=== PATIENT | male | born 1950 | race Native Hawaiian/Other Pacific Islander ===

== ENCOUNTER 2022-05-16 09:30 | Outpatient (CLI) | payer OTHER ==
[2022-05-16 10:11] LABS: PLATELET COUNT 258 K/uL (142-355)
[2022-05-16 10:39] LABS: POTASSIUM 4.1 mmol/L (3.6-5.2)
== END 2022-05-16 19:53 | disposition home or self-care (01) ==
LOC: LABW 09:30
PROVIDERS: ATTEND Internal Medicine
DX: N18.2 Chronic kidney disease, stage 2 (mild) (principal); R31.0 Gross hematuria
CPT/HCPCS: 36415; 80053; 81002; 82043; 82306; 82570; 83516; 83735; 83970; 84156; 84550; 85027; 86038; 86140; 86160; 86225; 86255

== ENCOUNTER 2022-09-09 08:14 | Outpatient (CLI) | payer OTHER | END 2022-09-09 20:40 | disposition home or self-care (01) | LOC: US 08:14 | PROVIDERS: ATTEND Internal Medicine Endocrinology, Diabetes & Metabolism | DX: Z00.00 Encounter for general adult medical examination without abnormal findings (principal); Z87.891 Personal history of nicotine dependence; Z09 Encounter for follow-up examination after completed treatment for conditions other than malignant neoplasm ==

== ENCOUNTER 2022-12-25 13:40 | Outpatient (CLI) | payer OTHER ==
[2022-12-25 14:08] LABS: PLATELET COUNT 359 K/uL (142-355)
[2022-12-25 14:14] LABS: POTASSIUM 4.1 mmol/L (3.6-5.2)
== END 2022-12-25 19:34 | disposition home or self-care (01) ==
LOC: LABW 13:40
PROVIDERS: ATTEND Internal Medicine
DX: N18.2 Chronic kidney disease, stage 2 (mild) (principal)
CPT/HCPCS: 36415; 80053; 82043; 82306; 82570; 83735; 83970; 84156; 84550; 85027; 86140

== ENCOUNTER 2023-01-27 10:05 | Outpatient (CLI) | payer OTHER ==
[2023-01-27 10:29] LABS: PLATELET COUNT 367 K/uL (142-355)
[2023-01-27 10:54] LABS: POTASSIUM 3.9 mmol/L (3.6-5.2)
== END 2023-01-27 20:45 | disposition home or self-care (01) ==
LOC: LABW 10:05
PROVIDERS: ATTEND Internal Medicine
DX: N18.32 Chronic kidney disease, stage 3b (principal); D64.9 Anemia, unspecified
CPT/HCPCS: 36415; 80053; 81002; 82043; 82306; 82330; 82570; 82607; 82728; 82746; 83540; 83550; 83735; 83970; 84100; 84156; 85008; 85027

== ENCOUNTER 2023-04-19 10:48 | Emergency (ER) | payer OTHER ==
[~2023-04-19] VITALS: Ht 182.9 cm; Wt 77.1 kg
[2023-04-19 10:48] VITALS: TEMP 97.3
[2023-04-19 11:56] LABS: PLATELET COUNT 286 K/uL (142-355)
[2023-04-19 12:09] LABS: POTASSIUM 4.3 mmol/L (3.6-5.2)
[2023-04-19 14:00] VITALS: BP 117/81
== END 2023-04-19 15:15 | disposition home or self-care (01) ==
LOC: ED 10:48
PROVIDERS: Emergency Medicine
DX: E87.1 Hypo-osmolality and hyponatremia (principal); E86.0 Dehydration; R63.0 Anorexia; C18.9 Malignant neoplasm of colon, unspecified; F32.A Depression, unspecified; I82.409 Acute embolism and thrombosis of unspecified deep veins of unspecified lower extremity
CPT/HCPCS: 80053; 82550; 83880; 84484; 85027; 93005; 96360; 99284